=== PATIENT | female | born 1950 | race Caucasian/White ===

== ENCOUNTER 2022-12-25 16:39 | Inpatient (IN) | payer MEDICARE, OTHER ==
--- NOTE | 2022-12-25 18:07 | ED ---
Lower Extremity Injury HPI - General Chief Complaint: Extremity Injury, Lower Stated Complaint: Hip fracture Time Seen by Provider: 12/25/22 17:00 Source: patient, EMS, RN notes reviewed Mode of arrival: EMS Limitations: no limitations - History of Present Illness Initial Comments: 72-year-old female history dementia apparently fell during a transfer at her nursing facility. She was taken to [facility] where she was evaluated and diagnosed with a left hip IT fracture. She was transferred here for higher level of care. Patient herself is a poor historian. Information gathered from the transfer forms reports of other injury. Patient is able to state that she does have pain in her left hip MD Complaint: hip injury - Related Data Home Medications Medication Instructions Recorded Confirmed Acetaminophen [Tylenol] 650 mg PO Q6H PRN 12/25/22 12/25/22 Atorvastatin [Lipitor] 10 mg PO HS 12/25/22 12/25/22 Donepezil [Aricept] 10 mg PO HS 12/25/22 12/25/22 Dulaglutide [Trulicity] 1.5 mg SQ FR 12/25/22 12/25/22 Fexofenadine HCl 60 mg PO DAILY 12/25/22 12/25/22 Fluticasone Nasal [place] [Flonase 1 spray EA NOSTRIL DAILY 12/25/22 12/25/22 Nasal [place]] HYDROcodone/APAP 7.5-325MG [[place] 1 tab PO TID@0900,1300,2100 12/25/22 12/25/22 7.5-325] Insulin Glargine,Hum.rec.anlog 30 units SQ BID 12/25/22 12/25/22 [[place] Solostvarsha] Insulin Lispro [humaLOG Kwikpen] 6 unit SQ DAILY@1600 12/25/22 12/25/22 Magnesium Hydroxide [Milk of 400 mg PO DAILY PRN 12/25/22 12/25/22 Magnesia] Metoprolol Tartrate [Lopressor] 25 mg PO BID 12/25/22 12/25/22 Rivaroxaban [Xarelto] 20 mg PO HS 12/25/22 12/25/22 Sennosides/Docusate Sodium [Senna 1 tab PO BID 12/25/22 12/25/22 Plus 8.6-50 mg Tablet] Sertraline [Zoloft] 50 mg PO DAILY 12/25/22 12/25/22 guaiFENesin SYRUP 100MG/5ML 200 mg PO Q4H PRN 12/25/22 12/25/22 [Robitussin] Allergies Allergy/AdvReac Type Severity Reaction Status Date / Time No Known Allergies Allergy Unverified 12/25/22 17:44 Review of Systems ROS Statement: Those systems with pertinent positive or pertinent negative responses have been documented in the HPI. ROS Other: All systems not noted in ROS Statement are negative. Past Medical History Past Medical History: Unable to Obtain Past Surgical History: Unable to Obtain General Exam - General Exam Comments Initial Comments: This is a well-developed well-nourished awake alert pleasant female Limitations: no limitations General appearance: alert, in no apparent distress Head exam: Present: atraumatic, normocephalic, normal inspection Eye exam: Present: normal appearance, PERRL, EOMI. Absent: scleral icterus, conjunctival injection, periorbital swelling ENT exam: Present: normal exam, mucous membranes moist Neck exam: Present: normal inspection, full ROM. Absent: tenderness, meningismus, lymphadenopathy Respiratory exam: Present: normal lung sounds bilaterally. Absent: respiratory distress, wheezes, rales, rhonchi, stridor Cardiovascular Exam: Present: regular rate, normal rhythm, normal heart sounds. Absent: systolic murmur, diastolic murmur, rubs, gallop, clicks GI/Abdominal exam: Present: soft, normal bowel sounds. Absent: distended, tenderness, guarding, rebound, rigid Rectal exam: Present: deferred Extremities exam: Present: normal inspection, tenderness, normal capillary refill. Absent: full ROM (Tenderness palpation over left hip no definitive shortening or rotation at this time.), pedal edema, joint swelling, calf tendern ess Back exam: Present: normal inspection Neurological exam: Present: alert, oriented X3, CN II-XII intact Psychiatric exam: Present: normal affect, normal mood Skin exam: Present: warm, dry, intact, normal color. Absent: rash Course Vital Signs 12/25/22 12/25/22 16:52 18:43 Pulse Rate 74 75 Respiratory 15 15 Rate Blood Pressure 123/60 122/60 O2 Sat by Pulse 99 100 Oximetry Medical Decision Making - Medical Decision Making I did the entire chart sent from the sending facility including x-rays are is evidence of an IT fracture left hip. I did discuss the case with Dr. Honeycutt [facility] to the patient is seen before admitted with medical consultation for surgery.Was pt. sent in by a medical professional or institution (SCOTT Marion, AUTO GARAGE ATTENDANT, urgent care, hospital, or half-way...) When possible be specific @ -Yes Did you speak to anyone other than the patient for history (EMS, parent, family, police, friend...)? What history was obtained from this source @ -Paramedics Did you review nursing and triage notes (agree or disagree)? Why? @ -I reviewed and agree with nursing and triage notes Were old charts reviewed (outside hosp., previous admission, EMS record, old EKG, old radiological studies, urgent care reports/EKG's, half-way records)? Report findings @ -Sending facility old charts were reviewed Differential Diagnosis (chest pain, altered mental status, abdominal pain women, abdominal pain men, vaginal bleeding, weakness, fever, dyspnea, syncope, headache, dizziness, GI bleed, back pain, seizure, CVA, palpatations, mental health, musculoskeletal)? @ -Hip fracture EKG interpreted by me (3pts min.). @ -Not done X-rays interpreted by me (1pt min.). @ -X-rays from the sending facility indicative of left hip IT fracture CT interpreted by me (1pt min.). @ -None done U/S interpreted by me (1pt. min.). @ -None done What testing was considered but not performed or refused? (CT, X-rays, U/S, labs)? Why? @ -None What meds were considered but not given or refused? Why? @ -None Did you discuss the management of the patient with other professionals (professionals i.e. SCOTT Marion, AUTO GARAGE ATTENDANT, lab, RT, psych nurse, social services assistant, mental health worker, teacher, airframe technical officer, caser shoe parts)? Give summary @ -Dr. Honeycutt Was smoking cessation discussed for >3mins.? @ -No Was critical care preformed (if so, how long)? @ -No Were there social determinants of health that impacted care today? How? (Homelessness, low income, unemployed, alcoholism, drug addiction, transportation, low edu. Level, literacy, decrease access to med. care, [place] [facility], rehab)? @ -No Was there de-escalation of care discussed even if they declined (Discuss DNR or withdrawal of care, Hospice)? DNR status @ -No What co-morbidities impacted this encounter? (DM, HTN, Smoking, COPD, CAD, Cancer, CVA, ARF, Chemo, Hep., AIDS, mental health diagnosis, sleep apnea, morbid obesity)? @ -A. fib depression dementia hypertension Was patient admitted / discharged? Hospital course, mention meds given and route, prescriptions, significant lab abnormalities, going to OR and other pertinent info. @ -hospital course Undiagnosed new problem with uncertain prognosis? @ -No Drug Therapy requiring intensive monitoring for toxicity (Heparin, Nitro, Insulin, Cardizem)? @ -No Were any procedures done? @ -No Diagnosis/symptom? @ -Acute left hip fracture Acute, or Chronic, or Acute on Chronic? @ -Acute Uncomplicated (without systemic symptoms) or Complicated (systemic symptoms)? @ -default Side effects of treatment? @ -No Exacerbation, Progression, or Severe Exacerbation? @ -No Poses a threat to life or bodily function? How? (Chest pain, [place], [place], pneumonia, PE, COPD, DKA, ARF, appy, cholecystitis, CVA, Diverticulitis, Homicidal, Suicidal, threat to staff... and all critical care pts) @ -No - Lab Data Result diagrams: 12/25/22 18:43 12/25/22 18:43 Lab Results 12/25/22 12/25/22 12/25/22 Range/Units 18:43 18:43 18:43 WBC 15.4 H (3.8-10.6) k/uL RBC 4.17 (3.80-5.40) m/uL Hgb 13.6 (11.4-16.0) gm/dL Hct 39.0 (34.0-46.0) % MCV 93.5 (80.0-100.0) fL MCH 32.7 (25.0-35.0) pg MCHC 34.9 (31.0-37.0) g/dL RDW 12.6 (11.5-15.5) % Plt Count 230 (150-450) k/uL MPV 8.1 Neutrophils % 84 % Lymphocytes % 10 % Monocytes % 5 % Eosinophils % 1 % Basophils % 0 % Neutrophils # 12.9 H (1.3-7.7) k/uL Lymphocytes # 1.5 (1.0-4.8) k/uL Monocytes # 0.8 (0-1.0) k/uL Eosinophils # 0.1 (0-0.7) k/uL Basophils # 0.0 (0-0.2) k/uL PT 10.6 (9.0-12.0) sec INR 1.0 (<1.2) APTT 23.6 (22.0-30.0) sec Sodium (137-145) mmol/L Potassium (3.5-5.1) mmol/L Chloride (98-107) mmol/L Carbon Dioxide (22-30) mmol/L Anion Gap mmol/L BUN (7-17) mg/dL Creatinine (0.52-1.04) mg/dL Est GFR (CKD-EPI)AfAm (>60 ml/min/1.73 sqM) Est GFR (CKD-EPI)NonAf (>60 ml/min/1.73 sqM) Glucose (74-99) mg/dL Calcium (8.4-10.2) mg/dL Total Bilirubin (0.2-1.3) mg/dL AST (14-36) U/L ALT (4-34) U/L Alkaline Phosphatase (38-126) U/L Total Protein (6.3-8.2) g/dL Albumin (3.5-5.0) g/dL Urine Color Yellow Urine Appearance Clear (Clear) Urine pH 7.0 (5.0-8.0) Ur Specific [place] 1.015 (1.001-1.035) Urine Protein Negative (Negative) Urine Glucose (UA) Negative (Negative) Urine Ketones Negative (Negative) Urine Blood Negative (Negative) Urine Nitrite Negative (Negative) Urine Bilirubin Negative (Negative) Urine Urobilinogen 2.0 (<2.0) mg/dL Ur Leukocyte Esterase Negative (Negative) 12/25/22 Range/Units 18:43 WBC (3.8-10.6) k/uL RBC (3.80-5.40) m/uL Hgb (11.4-16.0) gm/dL Hct (34.0-46.0) % MCV (80.0-100.0) fL MCH (25.0-35.0) pg MCHC (31.0-37.0) g/dL RDW (11.5-15.5) % Plt Count (150-450) k/uL MPV Neutrophils % % Lymphocytes % % Monocytes % % Eosinophils % % Basophils % % Neutrophils # (1.3-7.7) k/uL Lymphocytes # (1.0-4.8) k/uL Monocytes # (0-1.0) k/uL Eosinophils # (0-0.7) k/uL Basophils # (0-0.2) k/uL PT (9.0-12.0) sec INR (<1.2) APTT (22.0-30.0) sec Sodium 136 L (137-145) mmol/L Potassium 3.9 (3.5-5.1) mmol/L Chloride 101 (98-107) mmol/L Carbon Dioxide 29 (22-30) mmol/L Anion Gap 6 mmol/L BUN 16 (7-17) mg/dL Creatinine 0.66 (0.52-1.04) mg/dL Est GFR (CKD-EPI)AfAm >90 (>60 ml/min/1.73 sqM) Est GFR (CKD-EPI)NonAf 88 (>60 ml/min/1.73 sqM) Glucose 67 L (74-99) mg/dL Calcium 8.9 (8.4-10.2) mg/dL Total Bilirubin 0.6 (0.2-1.3) mg/dL AST 32 (14-36) U/L ALT 42 H (4-34) U/L Alkaline Phosphatase 108 (38-126) U/L Total Protein 6.1 L (6.3-8.2) g/dL Albumin 3.7 (3.5-5.0) g/dL Urine Color Urine Appearance (Clear) Urine pH (5.0-8.0) Ur Specific [place] (1.001-1.035) Urine Protein (Negative) Urine Glucose (UA) (Negative) Urine Ketones (Negative) Urine Blood (Negative) Urine Nitrite (Negative) Urine Bilirubin (Negative) Urine Urobilinogen (<2.0) mg/dL Ur Leukocyte Esterase (Negative) Disposition Clinical Impression: Fracture of hip Disposition: ADMITTED IP TO THIS HOSP Condition: Stable Referrals: Jack Moore MD [Primary Care Provider] - 1-2 days Decision Date: 12/25/22 Decision Time: 19:37
[2022-12-25 18:54] LABS: Appearance,Urine Clear (Clear); Basophils % (A) 0 %; Bilirubin,Urine Negative (Negative); Blood,Urine Negative (Negative); Color,Urine Yellow; Eosinophils # (A) 0.1 k/uL (0-0.7); Eosinophils % (A) 1 %; Glucose,Urine (UA) Negative (Negative); HGB 13.6 gm/dL (11.4-16.0); Ketones,Urine Negative (Negative); Leukocyte Esterase,Urine Negative (Negative); Lymphocytes # (A) 1.5 k/uL (1.0-4.8); Lymphocytes % (A) 10 %; MCH 32.7 pg (25.0-35.0); MCHC 34.9 g/dL (31.0-37.0); MCV 93.5 fL (80.0-100.0); Mean Platelet Volume 8.1; Monocytes # (A) 0.8 k/uL (0-1.0); Monocytes % (A) 5 %; Neutrophils # (A) 12.9 k/uL (1.3-7.7); Neutrophils % (A) 84 %; Nitrite,Urine Negative (Negative); Platelet Count 230 k/uL (150-450); Protein,Urine Negative (Negative); RBC 4.17 m/uL (3.80-5.40); RDW 12.6 % (11.5-15.5); Specific Gravity,Urine 1.015 (1.001-1.035); WBC 15.4 k/uL (3.8-10.6)
[2022-12-25 19:04] LABS: ALT 42 U/L (4-34); AST 32 U/L (14-36); African American GFR (CKD) >90 (>60 ml/min/1.73 sqM); Albumin 3.7 g/dL (3.5-5.0); Alkaline Phosphatase 108 U/L (38-126); Anion Gap 6 mmol/L; Blood Urea Nitrogen 16 mg/dL (7-17); Calcium 8.9 mg/dL (8.4-10.2); Carbon Dioxide 29 mmol/L (22-30); Chloride 101 mmol/L (98-107); Glucose 67 mg/dL (74-99); Non-African American GFR(CKD) 88 (>60 ml/min/1.73 sqM); Potassium 3.9 mmol/L (3.5-5.1); Sodium 136 mmol/L (137-145); Total Bilirubin 0.6 mg/dL (0.2-1.3); Total Protein 6.1 g/dL (6.3-8.2)
[2022-12-25 19:20] LABS: Partial Thromboplastin Time 23.6 sec (22.0-30.0); Prothrombin Time 10.6 sec (9.0-12.0)
[2022-12-25] MEDS ORDERED: ONDANSETRON 4 MG/2 ML VIAL IVP PRN (19:38)
[2022-12-25] MEDS ORDERED: NALOXONE 0.4 MG/ML 1 ML VIAL IV PRN (19:38)
--- NOTE | 2022-12-25 20:39 | XR ---
EXAMINATION: XR chest 1V portable DATE AND TIME: 12/25/2022 6:52 PM CLINICAL INDICATION: Left hip fracture TECHNIQUE: AP upright portable COMPARISON: None FINDINGS: The lungs are clear. The pleural spaces are negative. The cardiac silhouette is not enlarged. The remainder of the mediastinal silhouette is unremarkable. The skeletal structures and soft tissues are negative for acute findings. IMPRESSION: No acute radiographic process.
[2022-12-25 20:58] LABS: Glucose,Whole Blood 70 mg/dL (70-110)
[2022-12-25] MEDS: HYDROmorphone 0.5 MG/0.5 ML SYRINGE IVP PRN (22:09)
[2022-12-25] MEDS: SODIUM CHLORIDE 0.9% 1,000 ML IV SCH (22:09)
[2022-12-26] MEDS: SODIUM CHLORIDE 0.9% 1,000 ML IV SCH ×2 (04:14→13:10)
[2022-12-26] MEDS: HYDROmorphone 0.5 MG/0.5 ML SYRINGE IVP PRN ×3 (05:33→16:05)
[2022-12-26 07:34] LABS: Glucose,Whole Blood 66 mg/dL (70-110)
[2022-12-26 08:14] LABS: Glucose,Whole Blood 58 mg/dL (70-110)
[2022-12-26 08:37] LABS: Glucose,Whole Blood 102 mg/dL (70-110)
--- NOTE | 2022-12-26 09:10 | P.HPOR ---
History of Present Illness H&P Date: 12/26/22 Chief Complaint: Left hip injury The patient is a 72 y/o female with a past medical history including diabetes, A. fib, and dementia, who presented to the ER at [facility] after a transfer from an outside facility. She states she fell yesterday, 12/25/2022 and had immediate left hip pain and inability to ambulate. She does use a walker at home and she lives with her . She was found to have a intratrochanteric fracture of the left hip and was transferred here for surgical intervention. The patient was admitted to orthopedics with internal medicine on consult. Review of Systems Constitutional: Denies chills, Denies fatigue, Denies fever Cardiovascular: Denies chest pain, Denies shortness of breath Respiratory: Denies cough Gastrointestinal: Denies diarrhea, Denies nausea, Denies vomiting Musculoskeletal: left: hip pain, hip stiffness, hip swelling Past Medical History Past Medical History: Atrial Fibrillation, Dementia History of Any Multi-Drug Resistant Organisms: None Reported Past Surgical History: Unable to Obtain Past Anesthesia/Blood Transfusion Reactions: No Reported Reaction Past Psychological History: No Psychological Hx Reported Smoking Status: Never smoker Past Alcohol Use History: None Reported Past Drug Use History: None Reported Medications and Allergies Home Medications Medication Instructions Recorded Confirmed Type Acetaminophen [Tylenol] 650 mg PO Q6H PRN 12/25/22 12/25/22 History Atorvastatin [Lipitor] 10 mg PO HS 12/25/22 12/25/22 History Donepezil [Aricept] 10 mg PO HS 12/25/22 12/25/22 History Dulaglutide [Trulicity] 1.5 mg SQ FR 12/25/22 12/25/22 History Fexofenadine HCl 60 mg PO DAILY 12/25/22 12/25/22 History Fluticasone Nasal [place] [Flonase 1 spray EA NOSTRIL DAILY 12/25/22 12/25/22 History Nasal [place]] HYDROcodone/APAP 7.5-325MG [[place] 1 tab PO TID@0900,1300,2100 12/25/22 12/25/22 History 7.5-325] Insulin Glargine,Hum.rec.anlog 30 units SQ BID 12/25/22 12/25/22 History [Tojyothi Roberto] Insulin Lispro [humaLOG Kwikpen] 6 unit SQ DAILY@1600 12/25/22 12/25/22 History Magnesium Hydroxide [Milk of 400 mg PO DAILY PRN 12/25/22 12/25/22 History Magnesia] Metoprolol Tartrate [Lopressor] 25 mg PO BID 12/25/22 12/25/22 History Rivaroxaban [Xarelto] 20 mg PO HS 12/25/22 12/25/22 History Sennosides/Docusate Sodium [[place] 1 tab PO BID 12/25/22 12/25/22 History Plus 8.6-50 mg Tablet] Sertraline [Zoloft] 50 mg PO DAILY 12/25/22 12/25/22 History guaiFENesin SYRUP 100MG/5ML 200 mg PO Q4H PRN 12/25/22 12/25/22 History [Robitussin] Allergies Allergy/AdvReac Type Severity Reaction Status Date / Time No Known Allergies Allergy Unverified 12/25/22 17:44 Physical Examination The patient is a 72 year-old female in no acute distress. She is alert and oriented 2. The patient's head is normocephalic, atraumatic. No pain upon palpation to the cervical spine, no step-offs noted. Exam of the bilateral upper extremities reveal no obvious deformities or wounds. Exam of the right lower extremity reveals no deformity or wounds. No pain upon range of motion of the right leg. Exam of the left lower extremity reveals severe guarding to the left hip. There is a small abrasion on the her left anterior leg from the fall. There is pain to palpation to the lateral hip. There is pain to external and internal rotation of the left hip. Calf is soft and nontender. She is able to wiggle his toes. Circulatory status is intact. Results Outside x-rays of the pelvis at [facility] reveals a intertrochantric fracture of the left hip. - Labs Labs: Abnormal Lab Results - Last 24 Hours (Table) 12/25/22 12/25/22 12/26/22 Range/Units 18:43 18:43 07:32 WBC 15.4 H (3.8-10.6) k/uL Neutrophils # 12.9 H (1.3-7.7) k/uL Sodium 136 L (137-145) mmol/L Glucose 67 L (74-99) mg/dL POC Glucose (mg/dL) 66 L (70-110) mg/dL ALT 42 H (4-34) U/L Total Protein 6.1 L (6.3-8.2) g/dL 12/26/22 Range/Units 08:13 WBC (3.8-10.6) k/uL Neutrophils # (1.3-7.7) k/uL Sodium (137-145) mmol/L Glucose (74-99) mg/dL POC Glucose (mg/dL) 58 L (70-110) mg/dL ALT (4-34) U/L Total Protein (6.3-8.2) g/dL H & H 12/25/22 Range/Units 18:43 Hgb 13.6 (11.4-16.0) gm/dL Hct 39.0 (34.0-46.0) % Coagulation 12/25/22 Range/Units 18:43 INR 1.0 (<1.2) Result Diagrams: 12/25/22 18:43 12/25/22 18:43 Assessment and Plan (1) Closed left hip fracture Current Visit: Yes Status: Acute Code(s): S72.002A - FRACTURE OF UNSP PART OF NECK OF LEFT FEMUR, INIT SNOMED Code(s): 932021170 (2) Dementia Current Visit: Yes Status: Acute Code(s): F03.90 - UNSP DEMENTIA, UNSP SEVERITY, WITHOUT BEH/PSYCH/MOOD/ANX SNOMED Code(s): 33442159 (3) Atrial fibrillation Current Visit: Yes Status: Acute Code(s): I48.91 - UNSPECIFIED ATRIAL FIBRILLATION SNOMED Code(s): 46933092 (4) Diabetes mellitus Current Visit: Yes Status: Acute Code(s): E11.9 - TYPE 2 DIABETES MELLITUS WITHOUT COMPLICATIONS SNOMED Code(s): 68832129 Plan: The clinical and x-ray findings were discussed with the patient. No family was at the bedside this morning. The case was discussed at length with Dr. Honeycutt. This type of fracture requires surgical intervention in the form of an ORIF with insertion of a cephlomedullary nail. We will await medical clearance for surgery and anticipate surgical intervention tomorrow morning at 8 AM. She'll be NPO at midnight. Continue bed rest and pain medication as needed. We will continue to follow patient closely and make further recommendations as needed.
[2022-12-26] MEDS ORDERED: bisacodyL 10 MG SUPP RECTAL STA (10:13)
[2022-12-26] MEDS: SENNOSIDES 8.6 MG TAB PO SCH ×2 (11:13→21:19)
[2022-12-26] MEDS ORDERED: ACETAMINOPHEN TAB 325 MG TAB PO PRN (11:37)
[2022-12-26] MEDS ORDERED: DEXTROSE 50% SYRINGE 50 ML IVP PRN ×2 (11:37)
[2022-12-26] MEDS ORDERED: MAGNESIUM HYDROXIDE 2,400 MG/30 ML CUP PO PRN (11:37)
[2022-12-26] MEDS ORDERED: guaiFENesin SYRUP 100MG/5ML 200 MG/10 ML CUP PO PRN (11:37)
[2022-12-26] MEDS ORDERED: NON FORMULARY DRUG (Dulaglutide [Trulicity] 1.5 MG/0.5 ML Each) SQ SCH (11:45)
[2022-12-26 11:54] LABS: Glucose,Whole Blood 178 mg/dL (70-110)
[2022-12-26] MEDS ORDERED: DEXTROSE 5%-0.9% NACL 1,000 ML with POTASSIUM CHLORIDE 20 MEQ IV SCH ×2 (12:00)
--- NOTE | 2022-12-26 12:54 | P.CRDCN ---
History of Present Illness Consult date: 12/26/22 Consult reason: atrial fibrillation History of present illness: History of present illness: This is a 72 year old female patient with past medical history of dementia, diabetes mellitus type 2, atrial fibrillation, hypertension, hyperlipidemia. Patient apparently had a transfer and fell at her [facility] and was sent to [facility] found to have a left hip IT fracture and was subsequently transferred to [facility] for surgical intervention. Patient is scheduled tomorrow for left hip open reduction internal fixation and a cephalo- medullary nail. Patient is pleasantly confused but able to deny having any chest pain, shortness of breath, lightheadedness or dizziness. She is having pain in the left hip area. EKG to be obtained Chest x-ray: No acute process Home cardiac medications: Atorvastatin 10 mg at bedtime, Lopressor 25 mg twice daily, Xarelto 20 g at bedtime Review Of Systems: At the time of my evaluation: Constitutional: No fever, no chills. No weakness, fatigue or lethargy. EENT: No headache. No dizziness. Lungs: No shortness of breath, cough, no sputum production. No wheezing. Cardiovascular: No chest pain, no lower extremity edema. No palpitations. No lightheadedness or dizziness. No syncopal episodes. Abdominal: No abdominal pain. No nausea, vomiting. No diarrhea. No constipation. No bloody or tarry stools. Genitourinary: No dysuria.. No urinary retention. Musculoskeletal: No myalgias. No muscle weakness, no frequent falls. Reports left hip pain Integumentary: No wounds. Neurologic: No aphasia. No facial droop. No change in mentation. No head injury. No headache. Physical examination: Gen: This is a 72-year-old female. She is resting in bed and appears to be comfortable and in no acute distress. VS: reviewed HEENT: Head is atraumatic, normocephalic. Pupils equal, round. Sclerae is anicteric. NECK: Supple. No JVD. . LUNGS: Clear to auscultation. No wheezes or rhonchi. No intercostal retractions. HEART: Irregular rate and rhythm. ABDOMEN: Soft No tenderness. EXTREMITIES: No pedal edema. Left lower extremity with external rotation NEUROLOGICAL: Patient is awake, alert and oriented to person. Assessment: Left IT fracture Chronic atrial fibrillation Hypertension Hyperlipidemia Dementia Diabetes mellitus Plan: Resume patient's home cardiac medications except for Xarelto Obtain EKG Obtain 2-D echocardiogram and Doppler study to assess cardiac structure and function Further recommendations to follow based upon clinical course Thank you kindly for this consultation. Nurse practitioner note has been reviewed, I agree with documented findings and plan of care. Patient was seen and examined. Past Medical History Past Medical History: Atrial Fibrillation, Dementia History of Any Multi-Drug Resistant Organisms: None Reported Past Surgical History: Unable to Obtain Past Anesthesia/Blood Transfusion Reactions: No Reported Reaction Past Psychological History: No Psychological Hx Reported Smoking Status: Never smoker Past Alcohol Use History: None Reported Past Drug Use History: None Reported Medications and Allergies Home Medications Medication Instructions Recorded Confirmed Type Acetaminophen [Tylenol] 650 mg PO Q6H PRN 12/25/22 12/25/22 History Atorvastatin [Lipitor] 10 mg PO HS 12/25/22 12/25/22 History Donepezil [Aricept] 10 mg PO HS 12/25/22 12/25/22 History Dulaglutide [Trulicity] 1.5 mg SQ FR 12/25/22 12/25/22 History Fexofenadine HCl 60 mg PO DAILY 12/25/22 12/25/22 History Fluticasone Nasal [place] [Flonase 1 spray EA NOSTRIL DAILY 12/25/22 12/25/22 History Nasal Ed[place]] HYDROcodone/APAP 7.5-325MG [Aurora 1 tab PO TID@0900,1300,2100 12/25/22 12/25/22 History 7.5-325] Insulin Glargine,Hum.rec.anlog 30 units SQ BID 12/25/22 12/25/22 History [Toujeo Solostar] Insulin Lispro [humaLOG Kwikpen] 6 unit SQ DAILY@1600 12/25/22 12/25/22 History Magnesium Hydroxide [Milk of 400 mg PO DAILY PRN 12/25/22 12/25/22 History Magnesia] Metoprolol Tartrate [Lopressor] 25 mg PO BID 12/25/22 12/25/22 History Rivaroxaban [Xarelto] 20 mg PO HS 12/25/22 12/25/22 History Sennosides/Docusate Sodium [Senna 1 tab PO BID 12/25/22 12/25/22 History Plus 8.6-50 mg Tablet] Sertraline [Zoloft] 50 mg PO DAILY 12/25/22 12/25/22 History guaiFENesin SYRUP 100MG/5ML 200 mg PO Q4H PRN 12/25/22 12/25/22 History [Robitussin] Allergies Allergy/AdvReac Type Severity Reaction Status Date / Time No Known Allergies Allergy Unverified 12/25/22 17:44 Physical Exam Vitals: Vital Signs Temp Pulse Pulse Resp BP BP Pulse Ox 12/26/22 07:22 98.5 F 74 14 119/65 95 12/26/22 02:00 98.4 F 79 16 133/64 94 L 12/25/22 23:00 16 12/25/22 22:11 98.3 F 71 16 134/72 96 12/25/22 22:00 97.9 F 74 17 156/69 97 12/25/22 21:15 78 16 135/65 100 12/25/22 18:43 75 15 122/60 100 12/25/22 16:52 74 15 123/60 99 Intake and Output 12/25/22 12/26/22 12/26/22 22:59 06:59 14:59 Output Total 450 300 Balance -450 -300 Output: Urine 450 300 Other: Voiding Method Indwelling Catheter Indwelling Catheter Weight 72.575 kg Results 12/25/22 18:43 12/25/22 18:43 Cardiac Enzymes 12/25/22 Range/Units 18:43 AST 32 (14-36) U/L Coagulation 12/25/22 Range/Units 18:43 PT 10.6 (9.0-12.0) sec APTT 23.6 (22.0-30.0) sec CBC 12/25/22 Range/Units 18:43 WBC 15.4 H (3.8-10.6) k/uL RBC 4.17 (3.80-5.40) m/uL Hgb 13.6 (11.4-16.0) gm/dL Hct 39.0 (34.0-46.0) % Plt Count 230 (150-450) k/uL Comprehensive Metabolic Panel 12/25/22 Range/Units 18:43 Sodium 136 L (137-145) mmol/L Potassium 3.9 (3.5-5.1) mmol/L Chloride 101 (98-107) mmol/L Carbon Dioxide 29 (22-30) mmol/L BUN 16 (7-17) mg/dL Creatinine 0.66 (0.52-1.04) mg/dL Glucose 67 L (74-99) mg/dL Calcium 8.9 (8.4-10.2) mg/dL AST 32 (14-36) U/L ALT 42 H (4-34) U/L Alkaline Phosphatase 108 (38-126) U/L Total Protein 6.1 L (6.3-8.2) g/dL Albumin 3.7 (3.5-5.0) g/dL Current Medications Generic Name Dose Route Start Last Admin Trade Name Freq PRN Reason Stop Dose Admin Acetaminophen 650 mg 12/26/22 11:37 Acetaminophen Tab 325 Mg Tab PO Q6H PRN Mild Pain Hydrocodone Bitart/Acetaminophen 1 each 12/26/22 13:00 Hydrocodone/Apap 7.5-325mg 1 Each Tab PO TID@0900,1300,2100 [facility] Atorvastatin Calcium 10 mg 12/26/22 21:00 Atorvastatin 10 Mg Tab PO HS [facility] Dextrose/Water 25 ml 12/26/22 11:37 Dextrose 50% Syringe 50 Ml IVP PER PROTOCOL PRN Hypoglycemia Protocol Dextrose/Water 50 ml 12/26/22 11:37 Dextrose 50% Syringe 50 Ml IVP PER PROTOCOL PRN Hypoglycemia Protocol Donepezil HCl 10 mg 12/26/22 21:00 Donepezil 10 Mg Tab PO HS [facility] Fluticasone Propionate 1 spray 12/27/22 09:00 Fluticasone 50mcg/Edmond Nasal 16gm EA NOSTRIL DAILY [facility] Guaifenesin 200 mg 12/26/22 11:37 Guaifenesin Syrup 100mg/5ml 200 Mg/10 Ml Cup PO Q4H PRN Cough Hydromorphone HCl 0.5 mg 12/25/22 19:38 12/26/22 10:23 Hydromorphone 0.5 Mg/0.5 Ml Syringe IVP 0.5 mg Q3HR PRN Administration Moderate Pain (Scale 4 to 6) Potassium Chloride 20 meq/ 1,010 mls @ 75 mls/hr 12/26/22 12:00 Dextrose/Sodium Chloride IV .[id number] [facility] Loratadine 10 mg 12/27/22 09:00 Loratadine 10 Mg Tab PO DAILY [facility] Magnesium Hydroxide 400 mg 12/26/22 11:37 Magnesium Hydroxide 2,400 Mg/30 Ml Cup PO DAILY PRN Constipation Metoprolol Tartrate 25 mg 12/26/22 21:00 Metoprolol Tartrate 25 Mg Tab PO BID [facility] Naloxone HCl 0.2 mg 12/25/22 19:38 Naloxone 0.4 Mg/Ml 1 Ml Vial IV Q2M PRN Opioid Reversal Ondansetron HCl 4 mg 12/25/22 19:38 Ondansetron 4 Mg/2 Ml Vial IVP Q8HR PRN Nausea And Vomiting Senna 8.6 mg 12/26/22 10:30 12/26/22 11:13 Sennosides 8.6 Mg Tab PO 8.6 mg BID KHURRAM Administration Sertraline HCl 50 mg 12/27/22 09:00 Sertraline 50 Mg Tab PO DAILY [facility]UR[facility] Intake and Output 12/25/22 12/26/22 12/26/22 22:59 06:59 14:59 Output Total 450 300 Balance -450 -300 Output: Urine 450 300 Other: Voiding Method Indwelling Catheter Indwelling Catheter Weight 72.575 kg 12/25/22 18:43 12/25/22 18:43
[2022-12-26] MEDS: HYDROcodone/APAP 7.5-325MG 1 EACH TAB PO SCH ×2 (13:09→21:19)
--- NOTE | 2022-12-26 14:47 | CONS ---
CONSULTATION REASON FOR CONSULTATION: Advice regarding atrial fibrillation and other medical issues requested by Orthopedic Surgery. HISTORY OF PRESENT ILLNESS: This is a 72-year-old woman with a past medical history of atrial fibrillation and dementia, who was admitted with left hip fracture. There is no history of any shortness of breath, palpitation, or chest pain at this time. There is no history of syncope. The patient is comfortable lying in the bed. PAST MEDICAL HISTORY: Reviewed includes atrial fibrillation and dementia. Rest of the history and rest of the chart are also reviewed. HOME MEDICATIONS: Reviewed, magnesium. Doses and rest of the medications are reviewed. ALLERGIES: None. FAMILY HISTORY: Could not be taken because of dementia. SOCIAL HISTORY: Could not be taken because of dementia. REVIEW OF SYSTEMS: Could not be taken because of dementia. PHYSICAL EXAMINATION: VITAL SIGNS: Pulse is 79, blood pressure 130/62, respirations 16. HEENT: Conjunctivae are normal. NECK: No jugular venous distention. CARDIOVASCULAR: S1 and S2 muffled. RESPIRATORY: Clear to auscultation. ABDOMEN: Soft and nontender. LEGS: Status post left hip fracture. NERVOUS SYSTEM: Nonfocal. SKIN: No ulcers or rashes. JOINTS: No active deforming arthropathy. LABORATORY DATA: Reviewed. ASSESSMENT: 1. Status post left hip fracture. 2. Dementia. 3. Atrial fibrillation history. 4. Increased WBC. 5. Mild hypoglycemia. RECOMMENDATIONS AND DISCUSSION: This is a 72-year-old woman presented with multiple medical issues. At this time, I recommend to continue the home medications, monitor blood sugars closely, D5 drip. Repeat labs. DVT prophylaxis. I will also recommend a baseline EKG. Otherwise, the patient is stable and cleared for surgery. MMODL / IJN: [id number] /
[2022-12-26] MEDS: D5-0.9% NACL WITH KCL 20 MEQ/L 1,000 ML IV SCH (16:03)
[2022-12-26 17:14] LABS: Glucose,Whole Blood 251 mg/dL (70-110)
--- NOTE | 2022-12-26 17:48 | CA ---
Transthoracic Echo Report Name: Carmen Colin Age: 72 Gender: F : 1950 Exam Date: 12/26/2022 14:09 Exam Location: [facility] Ht (in): 62 Wt (lb): 160 Ordering Physician: Radha Garcia Attending/Referring Phys: [id number], Radha Rehab Trainer Philipp Kwon Procedure CPT: Indications: LVF, preop Cardiac Hx: Technical Quality: Technically difficult study Contrast 1: Total Dose (mL): Contrast 2: Total Dose (mL): MEASUREMENTS (Male / Female) Normal Values FINDINGS Left Ventricle Normal LV size and wall thickness. Left ventricular ejection fraction is estimated at 55-60 %. Right Ventricle Normal right ventricular size. Right Atrium Normal right atrial size. Left Atrium Normal left atrial size. Mitral Valve Structurally normal mitral valve. Aortic Valve Aortic valve not well visualized. Mild AI. Tricuspid Valve Structurally normal tricuspid valve. Trace TR. Pulmonic Valve Pulmonic valve not well visualized. Pericardium Normal pericardium. Aorta Aortic root and proximal ascending aorta not well visualized. CONCLUSIONS Technically limited parasternal views. Normal LV function Mild aortic regurgitation Previewed by: Aleksander Lopez MD Dr. Suresh Tumma MD (Electronically Signed) Final Date: 26 December 2022 17:47
[2022-12-26 20:22] LABS: Glucose,Whole Blood 273 mg/dL (70-110)
[2022-12-26] MEDS: ATORVASTATIN 10 MG TAB PO SCH (21:19)
[2022-12-26] MEDS: DONEPEZIL 10 MG TAB PO SCH (21:19)
[2022-12-26] MEDS: METOPROLOL TARTRATE 25 MG TAB PO SCH (21:19)
[2022-12-27] MEDS: D5-0.9% NACL WITH KCL 20 MEQ/L 1,000 ML IV SCH ×2 (04:03→15:22)
[2022-12-27] MEDS ORDERED: MIDAZOLAM 2 MG/2 ML VIAL ONE (08:03)
[2022-12-27] MEDS ORDERED: PHENYLEPHRINE 10 MG/ML VIAL ONE (08:03)
[2022-12-27] MEDS ORDERED: ONDANSETRON 4 MG/2 ML VIAL ONE (08:03)
[2022-12-27] MEDS ORDERED: fentaNYL (PF) 50 MCG/ML 2 ML AMP ONE (08:03)
[2022-12-27] MEDS ORDERED: SUCCINYLCHOLINE CHLORIDE 200 MG/10 ML VIAL IV ONE (08:03)
[2022-12-27] MEDS ORDERED: PROPOFOL 10 MG/ML 20 ML VIAL IV ONE (08:03)
[2022-12-27] MEDS ORDERED: LIDOCAINE 2% INJ 20 MG/ML (2 ML VIAL) ONE (08:03)
[2022-12-27 08:05] LABS: Glucose,Whole Blood 254 mg/dL (70-110)
[2022-12-27] MEDS ORDERED: SODIUM CHLORIDE 0.9% 50 ML with ceFAZolin 2,000 MG IV ONE ×2 (08:06)
[2022-12-27] MEDS ORDERED: IV FLUID CONTINUATION 1,000 ML IV ONE (08:06)
[2022-12-27] MEDS: FLUTICASONE 50MCG/SPRAY NASAL 16GM EA NOSTRIL SCH (08:39)
[2022-12-27] MEDS ORDERED: BUPIVACAINE (PF) 0.5% 30 ML VIAL SQ ONE (09:21)
[2022-12-27 09:35] LABS: BUN/Creat Ratio 12.57 Ratio (12.00-20.00); Blood Urea Nitrogen 8.8 mg/dL (9.0-27.0); Calcium 9.1 mg/dL (8.7-10.3); Carbon Dioxide 25.9 mmol/L (21.6-31.8); Chloride 103 mmol/L (96-109); Glucose 280 mg/dL (70-110); Potassium 4.9 mmol/L (3.5-5.5); Sodium 137 mmol/L (135-145)
[2022-12-27 09:48] LABS: Basophils # (A) 0.03 X 10*3/uL (0.00-0.10); Basophils % (A) 0.3 %; Eosinophils # (A) 0.12 X 10*3/uL (0.04-0.35); Eosinophils % (A) 1.4 %; HCT 38.1 % (37.2-46.3); HGB 12.6 d/dL (12.0-15.0); Lymphocytes # (A) 1.18 X 10*3/uL (0.90-5.00); Lymphocytes % (A) 13.4 %; MCH 31.7 pg (27.0-32.0); MCHC 33.1 d/dL (32.0-37.0); MCV 95.7 FL (80.0-97.0); Mean Platelet Volume 11.7 FL (9.5-12.2); Monocytes # (A) 0.64 X 10*3/uL (0.20-1.00); Monocytes % (A) 7.3 %; NRBC Per 100 WBC 0 X 10*3/uL (0.00-0.01); Neutrophils # (A) 6.82 X 10*3/uL (1.80-7.70); Neutrophils % (A) 77.3 %; Platelet Count 202 X 10*3/uL (140-440); RBC 3.98 X 10*6/uL (4.10-5.20); RDW 12.4 % (11.5-14.5); WBC 8.82 X 10*3/uL (4.50-10.00)
[2022-12-27] MEDS ORDERED: HYDROmorphone 0.5 MG/0.5 ML SYRINGE IVP ONE (09:48)
--- NOTE | 2022-12-27 10:18 | FL ---
Intraoperative/procedural fluoroscopic services were provided. Total fluoroscopy time is 54 seconds w ith a total of 3 submitted images to PACS. Please see the operative/procedural note for further detai ls. DAP: 2.3058 mGym2
[2022-12-27] MEDS ORDERED: LACTATED RINGERS 1,000 ML IV ONE (10:43)
--- NOTE | 2022-12-27 10:45 | P.OP ---
Date of Procedure: 12/27/22 Preoperative Diagnosis: Left basicervical femoral neck fracture Postoperative Diagnosis: same Procedure(s) Performed: left hip IM nail Implants: jimmy gamma nail, short, 95mm lag screw, 35mm cortical screw Anesthesia: GETA Surgeon: La Honeycutt Estimated Blood Loss (ml): 20 Pathology: none sent Condition: stable Disposition: PACU Indications for Procedure: Carmen is a 72 female who suffered a ground level fall which resulted in a basicervial femoral neck fracture. We will proceed with a CMN. Operative Findings: minimally displaced basicervical femoral neck fracture Description of Procedure: The patient, operative extremity, and procedure were identified in the pre-op holding area. After informed consent was obtained. The patient was brought back to the OR. The patient was then positioned on the [place] table. Both feet were placed in well padded boots and the well leg was scissored with traction unlocked. All bony prominences were well padded. A reduction was performed with abduction and traction followed by adduction and internal rotation. This was confirmed on fluoroscopy. The operative site was then prepped and draped in normal sterile fashion. A 5cm incision was made posterior and proximal to the greater trochanter. The awl was introduced and used to hold the start point for the guide wire. The position of the guide wire was confirmed on orthogonal views. The awl was s ubstituted for the opening reamer. The ball tip guide wire was then introduced across the fracture and once placement was confirmed, the 12.5mm reamer was threaded over the wire and removed. The short nail was then placed over the wire and seated to the proper depth. The guide wire was removed. The triple cannula was then utilized to place the femoral neck guide pin. An incision was made to seat the triple cannula. Wire placement was checked on orthogonal views. The measuring guide showed that a mm screw would be appropriate for a tip to apex distance of less than 25mm. The reamer was set and utilized. The lag screw was then inserted. The superior locking screw was then tightened and loosened a quarter turn. The triple sleeve was removed and the jig was reset for the locking screw distally. The triple sleeve was inserted through an incision through skin and IT band. The hole was drilled and a mm screw was selected and inserted. Final views showed acceptable reduction and placement of the hardware. Wounds were irrigated and closed with 2.0 vycril and 4.0 monocryl and skin glue. Wounds were dressed with gauze and tegaderm. Patient was aroused by the ane sthesia team and brought back to PACU in stable condition.
[2022-12-27] MEDS ORDERED: droPERidol 5 MG/2 ML VIAL IVP ONE (10:57)
[2022-12-27] MEDS: LORATADINE 10 MG TAB PO SCH (11:01)
[2022-12-27] MEDS: SENNOSIDES 8.6 MG TAB PO SCH ×2 (11:01→20:57)
[2022-12-27] MEDS: HYDROcodone/APAP 7.5-325MG 1 EACH TAB PO SCH ×3 (11:01→20:57)
[2022-12-27] MEDS: SERTRALINE 50 MG TAB PO SCH (11:01)
--- NOTE | 2022-12-27 11:16 | XR ---
EXAMINATION TYPE: XR Hip Limited LT DATE OF EXAM: 12/27/2022 11:11 AM INDICATION: Patient age:Female; 72 years old; Reason for study: Status post hip surgery, assess surgical alignment; COMPARISON: None. TECHNIQUE: The left hip was examined in the frontal projections FINDINGS: Post arthroplasty changes, hardware is intact, alignment is appropriate. No evidence of fra cture. Postoperative changes of the soft tissues with subcutaneous gas. No evidence of any acute osse ous pathology or joint dislocation. IMPRESSION: Hip arthroplasty with hardware intact and in appropriate alignment. No acute fracture.
[2022-12-27] MEDS: METOPROLOL TARTRATE 25 MG TAB PO SCH ×2 (11:22→20:57)
[2022-12-27 12:15] LABS: Glucose,Whole Blood 225 mg/dL (70-110)
[2022-12-27] MEDS: SODIUM CHLORIDE 0.9% 1,000 ML IV SCH (16:30)
[2022-12-27 17:15] LABS: Glucose,Whole Blood 286 mg/dL (70-110)
[2022-12-27 20:49] LABS: Glucose,Whole Blood 382 mg/dL (70-110)
[2022-12-27] MEDS: RIVAROXABAN 20 MG TAB PO SCH (20:57)
[2022-12-27] MEDS: DONEPEZIL 10 MG TAB PO SCH (20:57)
[2022-12-27] MEDS: ATORVASTATIN 10 MG TAB PO SCH (20:57)
[2022-12-27] MEDS: SENNOSIDES-DOCUSATE SODIUM 1 EACH TAB PO SCH (20:58)
--- NOTE | 2022-12-27 21:09 | PN ---
PROGRESS NOTE DATE OF SERVICE: 12/27/2022 SUBJECTIVE: This is a 72-year-old woman who was admitted after left hip fracture, underwent left hip pain and IM nailing. No chest pain, no palpitation. The patient is sedated. OBJECTIVE: VITAL SIGNS: Pulse is 91, blood pressure 130/60, respirations 15. CHEST: Clear to auscultation. CARDIOVASCULAR: S1, S2. ABDOMEN: Soft. LEGS: Status post surgery. LABORATORY DATA: Reviewed. ASSESSMENT: 1. Left hip fracture, status post left hip IM nailing. 2. Dementia. 3. Atrial fibrillation history. 4. Increased WBC. 5. History of mild hyperglycemia .. RECOMMENDATIONS AND DISCUSSION: Recommended to continue current management and continue symptomatic treatment. Change the fluid back to 0.9, otherwise monitor blood sugars closely. Further recommendations to follow. MMODL / IJN: [id number] /
[2022-12-28] MEDS: SODIUM CHLORIDE 0.9% 1,000 ML IV SCH ×2 (06:13→21:49)
--- NOTE | 2022-12-28 07:07 | P.PN ---
Subjective Progress Note Date: 12/28/22 Principal diagnosis: Status post left IM nail This is a 72 year-old female post left hip IT nail. This is post-op day 1. The patient was evaluated at the bedside today. The patient denies nausea, vomiting, abdominal pain, shortness of breath, and chest pain this morning. She states her pain is controlled at this time. The patient has not been up with physical therapy yet. Objective - Vital Signs Vital signs: Vital Signs Temp 98.0 F 12/28/22 01:36 Pulse 83 12/28/22 01:36 Resp 18 12/28/22 01:36 BP 130/77 12/28/22 01:36 Pulse Ox 94 L 12/28/22 01:36 FiO2 Intake & Output 12/27/22 12/28/22 12/28/22 18:59 06:59 18:59 Intake Total 1350 180 Output Total 1020 1500 Balance 330 -1320 Intake: IV 1350 Oral 180 Output: Urine 1000 1500 Estimated Blood Loss 20 Other: Voiding Method Indwelling Catheter Indwelling Catheter - Exam The patient does not appear in acute distress. Alert and answering questions. Dressing is clean dry and intact. Incision appears fine with no erythema or active drainage. Calf is soft and nontender. Good foot and ankle motion without difficulty. Sensation and circulatory status is intact. - Labs CBC & Chem 7: 12/27/22 04:03 12/27/22 04:03 Labs: Abnormal Lab Results - Last 24 Hours (Table) 12/27/22 12/27/22 12/27/22 Range/Units 04:03 04:03 04:03 RBC 3.98 L (4.10-5.20) X 10*6/uL BUN 8.8 L (9.0-27.0) mg/dL Glucose 280 H (70-110) mg/dL POC Glucose (mg/dL) (70-110) mg/dL Hemoglobin A1c 7.2 H (<=6.0) % 12/27/22 12/27/22 12/27/22 Range/Units 07:53 12:14 17:14 RBC (4.10-5.20) X 10*6/uL BUN (9.0-27.0) mg/dL Glucose (70-110) mg/dL POC Glucose (mg/dL) 254 H 225 H 286 H (70-110) mg/dL Hemoglobin A1c (<=6.0) % 12/27/22 Range/Units 20:43 RBC (4.10-5.20) X 10*6/uL BUN (9.0-27.0) mg/dL Glucose (70-110) mg/dL POC Glucose (mg/dL) 382 H (70-110) mg/dL Hemoglobin A1c (<=6.0) % Assessment and Plan (1) Closed left hip fracture Current Visit: Yes Status: Acute Code(s): S72.002A - FRACTURE OF UNSP PART OF NECK OF LEFT FEMUR, INIT SNOMED Code(s): 996581556 (2) Dementia Current Visit: Yes Status: Acute Code(s): F03.90 - UNSP DEMENTIA, UNSP SEVERITY, WITHOUT BEH/PSYCH/MOOD/ANX SNOMED Code(s): 44171626 (3) Atrial fibrillation Current Visit: Yes Status: Acute Code(s): I48.91 - UNSPECIFIED ATRIAL FIBRILLATION SNOMED Code(s): 72704419 (4) Diabetes mellitus Current Visit: Yes Status: Acute Code(s): E11.9 - TYPE 2 DIABETES MELLITUS WITHOUT COMPLICATIONS SNOMED Code(s): 34713663 Plan: 1. Continue pain control. 2. Anticoagulation with Xarelto. 3. Start physical therapy and ambulation. Weightbearing as tolerated. 4. Keep hip dressings in place unless saturated. 5. Anticipate discharge back to [facility] tomorrow or Thursday.
[2022-12-28 07:49] LABS: Basophils % (A) 0 %; Eosinophils # (A) 0.1 k/uL (0-0.7); Eosinophils % (A) 1 %; HCT 32.7 % (34.0-46.0); HGB 11.2 gm/dL (11.4-16.0); Lymphocytes % (A) 12 %; MCH 32.4 pg (25.0-35.0); MCHC 34.2 g/dL (31.0-37.0); MCV 94.6 fL (80.0-100.0); Monocytes # (A) 0.4 k/uL (0-1.0); Monocytes % (A) 4 %; Neutrophils # (A) 7.1 k/uL (1.3-7.7); Neutrophils % (A) 82 %; Platelet Count 174 k/uL (150-450); RBC 3.46 m/uL (3.80-5.40); RDW 12.5 % (11.5-15.5); WBC 8.7 k/uL (3.8-10.6)
[2022-12-28 08:04] LABS: African American GFR (CKD) >90 (>60 ml/min/1.73 sqM); Anion Gap 6 mmol/L; Blood Urea Nitrogen 12 mg/dL (7-17); Calcium 8.2 mg/dL (8.4-10.2); Carbon Dioxide 28 mmol/L (22-30); Chloride 101 mmol/L (98-107); Glucose 257 mg/dL (74-99); Non-African American GFR(CKD) 89 (>60 ml/min/1.73 sqM); Sodium 135 mmol/L (137-145)
[2022-12-28 08:07] LABS: Glucose,Whole Blood 273 mg/dL (70-110)
[2022-12-28] MEDS: SERTRALINE 50 MG TAB PO SCH (10:08)
[2022-12-28] MEDS: FLUTICASONE 50MCG/SPRAY NASAL 16GM EA NOSTRIL SCH (10:08)
[2022-12-28] MEDS: SENNOSIDES 8.6 MG TAB PO SCH ×2 (10:08→21:29)
[2022-12-28] MEDS: LORATADINE 10 MG TAB PO SCH (10:08)
[2022-12-28] MEDS: METOPROLOL TARTRATE 25 MG TAB PO SCH ×2 (10:08→21:29)
[2022-12-28] MEDS: HYDROcodone/APAP 7.5-325MG 1 EACH TAB PO SCH ×3 (10:08→21:29)
[2022-12-28] MEDS ORDERED: DEXTROSE 50% SYRINGE 50 ML IVP PRN ×2 (10:46)
[2022-12-28 12:13] LABS: Glucose,Whole Blood 379 mg/dL (70-110)
[2022-12-28] MEDS: INSULIN ASPART (NovoLOG) 100 UNIT/ML VIAL SQ SCH ×3 (12:31→21:30)
[2022-12-28 17:19] LABS: Glucose,Whole Blood 275 mg/dL (70-110)
--- NOTE | 2022-12-28 20:03 | PN ---
PROGRESS NOTE DATE OF SERVICE: 12/28/2022 SUBJECTIVE: This is a 72-year-old woman, who was admitted with left hip fracture, had a left hip intramedullary nailing. No chest pain. No palpitations. No fever. OBJECTIVE: VITAL SIGNS: Pulse is 79, blood pressure 118/60, respirations 16. CHEST: Clear to auscultation. CARDIOVASCULAR: S1, S2. ABDOMEN: Soft. NERVOUS SYSTEM: Unchanged. LEGS: Status post surgery. LABORATORY DATA: Reviewed. Glucose elevated. ASSESSMENT: 1. Left hip fracture, status post left hip intramedullary nailing. 2. Dementia. 3. Possible diabetes mellitus type 2. 4. Atrial fibrillation. 5. Increased WBC. 6. Hypoglycemia on admission. RECOMMENDATIONS: Recommend to continue current medications, continue symptomatic treatment consistent with carb diet. Accu-Cheks before meals and at bedtime, NovoLog scale. Repeat labs. Closely monitor. Further recommendations to follow. MMODL / IJN: [id number] /
[2022-12-28] MEDS: SENNOSIDES-DOCUSATE SODIUM 1 EACH TAB PO SCH (21:25)
[2022-12-28 21:26] LABS: Glucose,Whole Blood 287 mg/dL (70-110)
[2022-12-28] MEDS: RIVAROXABAN 20 MG TAB PO SCH (21:29)
[2022-12-28] MEDS: ATORVASTATIN 10 MG TAB PO SCH (21:29)
[2022-12-28] MEDS: DONEPEZIL 10 MG TAB PO SCH (21:29)
[2022-12-29] MEDS: SODIUM CHLORIDE 0.9% 1,000 ML IV SCH ×2 (06:11→20:50)
[2022-12-29 07:10] LABS: Glucose,Whole Blood 217 mg/dL (70-110)
[2022-12-29] MEDS: LORATADINE 10 MG TAB PO SCH (08:23)
[2022-12-29] MEDS: SERTRALINE 50 MG TAB PO SCH (08:23)
[2022-12-29] MEDS: SENNOSIDES 8.6 MG TAB PO SCH ×2 (08:23→20:47)
[2022-12-29] MEDS: HYDROcodone/APAP 7.5-325MG 1 EACH TAB PO SCH ×3 (08:23→20:47)
[2022-12-29] MEDS: INSULIN ASPART (NovoLOG) 100 UNIT/ML VIAL SQ SCH ×4 (08:24→20:47)
[2022-12-29] MEDS: METOPROLOL TARTRATE 25 MG TAB PO SCH ×2 (08:24→20:43)
[2022-12-29] MEDS: FLUTICASONE 50MCG/SPRAY NASAL 16GM EA NOSTRIL SCH (08:25)
--- NOTE | 2022-12-29 08:49 | P.PN ---
Subjective Progress Note Date: 12/29/22 Principal diagnosis: This is a 72 year-old female post left hip IT nail. This is post-op day 2. The patient was evaluated at the bedside today. The patient denies nausea, vomitin g, abdominal pain, shortness of breath, and chest pain this morning. She states her pain is controlled at this time. This is a 72-year-old female in no acute distress. She is alert and oriented at this time. Exam of the left hip reveals that her dressing is clean, dry and intact. She has full foot ankle motion without difficulty or pain. Neurovascular status to the lower extremities grossly intact. Objective - Vital Signs Vital signs: Vital Signs Temp 99.1 F 12/29/22 07:40 Pulse 74 12/29/22 07:40 Resp 16 12/29/22 07:40 BP 138/77 12/29/22 07:40 Pulse Ox 94 L 12/29/22 08:26 FiO2 Intake & Output 12/28/22 12/29/22 12/29/22 18:59 06:59 18:59 Intake Total 600 1400 Output Total 1200 1625 Balance -600 -225 Intake: Intake, IV Titration 600 900 Amount Sodium Chloride 0.9% 1, 600 900 000 ml @ 75 mls/hr IV . [id number] [facility] Rx#:[id number] Oral 500 Output: Urine 1200 1625 Other: Voiding Method Indwelling Catheter Indwelling Catheter Indwelling Catheter - Exam The clinical findings are discussed with the patient. She may be discharged to [facility] from an orthopedic standpoint. She'll work with physical therapy today. - Labs CBC & Chem 7: 12/28/22 07:01 12/28/22 07:01 Labs: Abnormal Lab Results - Last 24 Hours (Table) 12/28/22 12/28/22 12/28/22 Range/Units 12:12 17:17 21:24 POC Glucose (mg/dL) 379 H 275 H 287 H (70-110) mg/dL 12/29/22 Range/Units 07:07 POC Glucose (mg/dL) 217 H (70-110) mg/dL
[2022-12-29 11:57] LABS: Basophils # (A) 0.04 X 10*3/uL (0.00-0.10); Basophils % (A) 0.5 %; Eosinophils # (A) 0.13 X 10*3/uL (0.04-0.35); Eosinophils % (A) 1.7 %; HCT 30.1 % (37.2-46.3); HGB 10.3 d/dL (12.0-15.0); Lymphocytes # (A) 1.38 X 10*3/uL (0.90-5.00); Lymphocytes % (A) 17.8 %; MCH 32.2 pg (27.0-32.0); MCHC 34.2 d/dL (32.0-37.0); MCV 94.1 FL (80.0-97.0); Mean Platelet Volume 11.3 FL (9.5-12.2); Monocytes # (A) 0.56 X 10*3/uL (0.20-1.00); Monocytes % (A) 7.2 %; NRBC Per 100 WBC 0 X 10*3/uL (0.00-0.01); Neutrophils # (A) 5.63 X 10*3/uL (1.80-7.70); Neutrophils % (A) 72.5 %; Platelet Count 178 X 10*3/uL (140-440); RDW 12.3 % (11.5-14.5); WBC 7.76 X 10*3/uL (4.50-10.00)
[2022-12-29 12:03] LABS: Glucose,Whole Blood 346 mg/dL (70-110)
[2022-12-29 12:35] LABS: BUN/Creat Ratio 14.57 Ratio (12.00-20.00); Blood Urea Nitrogen 10.2 mg/dL (9.0-27.0); Calcium 8.4 mg/dL (8.7-10.3); Carbon Dioxide 27.3 mmol/L (21.6-31.8); Chloride 99 mmol/L (96-109); Glucose 204 mg/dL (70-110); Potassium 3.8 mmol/L (3.5-5.5); Sodium 137 mmol/L (135-145)
[2022-12-29 17:07] LABS: Glucose,Whole Blood 284 mg/dL (70-110)
[2022-12-29 20:21] LABS: Glucose,Whole Blood 349 mg/dL (70-110)
[2022-12-29] MEDS: SENNOSIDES-DOCUSATE SODIUM 1 EACH TAB PO SCH (20:42)
[2022-12-29] MEDS: ATORVASTATIN 10 MG TAB PO SCH (20:47)
[2022-12-29] MEDS: RIVAROXABAN 20 MG TAB PO SCH (20:47)
[2022-12-29] MEDS: DONEPEZIL 10 MG TAB PO SCH (20:47)
--- NOTE | 2022-12-30 05:30 | P.PN ---
Subjective Progress Note Date: 12/29/22 This is a 72-year-old female who was recently admitted under orthopedic services status post fall had left hip fracture status post intramedullary nailing and is being closely monitored. Patient seen and evaluated by physical therapy will be returning to [facility] when discharged. Social work following patient requiring insurance authorization which has been submitted currently pending. Patient is sitting up in the chair has been working with physical therapy reports her pain is controlled. Patient is afebrile with no reports of chest pain or shortness of breath. Patient reports to tolerating diet with no reported nausea or vomiting. Review of systems: Constitutional: No reports of fatigue, fever, or chills Cardiovascular: No reports of chest pain or palpitations Respiratory: No reports of shortness of breath or cough GI: No reports of nausea, no reports of vomiting, no diarrhea : No reports of dysuria or retention Neurovascular: reports of generalized weakness All medications have been reviewed PHYSICAL EXAMINATION: GENERAL: The patient is alert and oriented x1-2 baseline, Well developed, well nourished. HEENT: Pupils are round and equally reacting to light. EOMI. no scleral icterus. No conjunctival pallor. Normocephalic, atraumatic. No pharyngeal erythema. No thyromegaly. CARDIOVASCULAR: S1 and S2 muffled PULMONARY: diminished breath sounds bilaterally with no wheezing or rhonchi noted. ABDOMEN: soft. Nontender on exam. non-distended, normoactive bowel sounds. No palpable organomegaly. MUSCULOSKELETAL: No joint swelling or deformity. EXTREMITIES: No cyanosis, clubbing, or pedal edema. Left hip surgical site dry and intact NEUROLOGICAL: Gross neurological examination did not reveal any focal deficits. Diffuse weakness SKIN: No rashes. Assessment: Left hip fracture, status post left hip intramedullary nailing Dementia history Possible diabetes mellitus, type II Atrial fibrillation history Leukocytosis Hypoglycemia, on admission improved GI prophylaxis DVT prophylaxis Full code Plan: Recommend to continue with current medications and management per orthopedic services. Patient underwent left hip intramedullary nailing and doing well postoperatively Patient will be returning to [facility] and requires insurance authorization. Social work is following and has submitted for insurance authorization. Encouraged oral intake and increased activity as tolerated with orthopedic restrictions Physical therapy following Recommend continue monitoring Accu-Cheks before meals and at bedtime and continue sliding scale Patient is medically stable for discharge to [facility]. We will continue to follow with orthopedics during hospitalization. Thank you kindly for this consultation The impression and plan of care has been dictated by Sara Ruiz, nurse practitioner as directed. Dr. Christie MD I have performed a history and examination and MDM of this patient, discussed the same with the dictator, and agree with the dictator's assessment and plan as written ,documented as a scribe. Based on total visit time, I have performed more than 50% of the visit. Any additional findings or plans will be noted. Objective - Vital Signs Vital signs: Vital Signs Temp 99.1 F 12/29/22 07:40 Pulse 74 12/29/22 07:40 Resp 16 12/29/22 07:40 BP 138/77 12/29/22 07:40 Pulse Ox 94 L 12/29/22 08:26 FiO2 Intake & Output 12/28/22 12/29/22 12/29/22 18:59 06:59 18:59 Intake Total 600 1400 Output Total 1200 1625 Balance -600 -225 Intake: Intake, IV Titration 600 900 Amount Sodium Chloride 0.9% 1, 600 900 000 ml @ 75 mls/hr IV . [id number] [facility] Rx#:[id number] Oral 500 Output: Urine 1200 1625 Other: Voiding Method Indwelling Catheter Indwelling Catheter Indwelling Catheter - Labs CBC & Chem 7: 12/29/22 06:40 12/29/22 06:40 Labs: Abnormal Lab Results - Last 24 Hours (Table) 12/28/22 12/28/22 12/28/22 Range/Units 12:12 17:17 21:24 POC Glucose (mg/dL) 379 H 275 H 287 H (70-110) mg/dL 12/29/22 Range/Units 07:07 POC Glucose (mg/dL) 217 H (70-110) mg/dL
[2022-12-30 07:34] LABS: Glucose,Whole Blood 217 mg/dL (70-110)
[2022-12-30 07:41] VITALS: RESP 17
[2022-12-30] MEDS: LORATADINE 10 MG TAB PO SCH (08:14)
[2022-12-30] MEDS: METOPROLOL TARTRATE 25 MG TAB PO SCH (08:14)
[2022-12-30] MEDS: HYDROcodone/APAP 7.5-325MG 1 EACH TAB PO SCH ×2 (08:14→13:04)
[2022-12-30] MEDS: SERTRALINE 50 MG TAB PO SCH (08:14)
[2022-12-30] MEDS: SENNOSIDES 8.6 MG TAB PO SCH (08:14)
[2022-12-30] MEDS: INSULIN ASPART (NovoLOG) 100 UNIT/ML VIAL SQ SCH ×2 (08:15→13:04)
[2022-12-30] MEDS: FLUTICASONE 50MCG/SPRAY NASAL 16GM EA NOSTRIL SCH (08:15)
[2022-12-30] MEDS: SODIUM CHLORIDE 0.9% 1,000 ML IV SCH (08:16)
[2022-12-30] MEDS ORDERED: TAMSULOSIN 0.4 MG CAP.ER.24H PO SCH (10:30)
--- NOTE | 2022-12-30 10:36 | P.DS ---
Providers Date of admission: 12/25/22 19:38 Expected date of discharge: 12/30/22 Attending physician: La Honeycutt DO Consults: 12/25/22 19:38 Consult Physician Routine Consulting Provider: Elise Hopper Consult Reason/Comments: Medical clearance for surgery Do you want consulting provider notified?: Yes Primary care physician: [facility] Course: This is a 72-year-old female who is admitted to [facility] on 12/25/22 after falling and sustaining injury to the left hip. On exam and x-ray in the emergency department she is found to have a basicervical left femoral neck fracture. She is admitted to our service for surgical intervention and care. Patient is taken to surgery for IM nail left hip on 12/27/22. The procedure was performed without complication or sequelae. The patient is doing fairly well postoperatively. Vital signs and labs are stable on postoperative day #3. Patient was examined bedside this morning. She states pain is well-controlled in the left hip. She has been ambulating with a walker with assistance. Patient states she feels well and has no complaints. Per nursing walton is being placed due to urinary retention. Patient denies chest pain, shortness of breath. On examination, patient is sitting up in bed in no apparent distress. She is alert and answers questions appropriately. On inspection of the left hip, there are three clean, dry, intact surgical dressings in place. No bleeding or drainage through the dressings. Motor and sensory function intact left lower extremity. Left lower extremity is warm and well perfused. Calf non-tender. Patient is discharged to rehab today in good condition, pending medical clearance. Please see med rec for accurate list of discharge medications. She should follow-up in the office at [facility] in two weeks. Patient Condition at Discharge: Stable Plan - Discharge Summary Discharge Rx Participant: No New Discharge Prescriptions: Continue Magnesium Hydroxide [Milk of Magnesia] 400 mg PO DAILY PRN PRN Reason: Constipation guaiFENesin SYRUP 100MG/5ML [Robitussin] 200 mg PO Q4H PRN PRN Reason: Cough Rivaroxaban [Xarelto] 20 mg PO HS Metoprolol Tartrate [Lopressor] 25 mg PO BID Insulin Lispro [humaLOG Kwikpen] 6 unit SQ DAILY@1600 Fexofenadine HCl 60 mg PO DAILY Dulaglutide [Trulicity] 1.5 mg SQ FR Donepezil [Aricept] 10 mg PO HS Atorvastatin [Lipitor] 10 mg PO HS Acetaminophen [Tylenol] 650 mg PO Q6H PRN PRN Reason: Pain Sennosides/Docusate Sodium [Senna Plus 8.6-50 mg Tablet] 1 tab PO BID Insulin Glargine,Hum.rec.anlog [Toujeo Solostar] 30 units SQ BID Sertraline [Zoloft] 50 mg PO DAILY Fluticasone Nasal [place]folden [Flonase Nasal Newfolden] 1 spray EA NOSTRIL DAILY Discontinued HYDROcodone/APAP 7.5-325MG [[place] 7.5-325] 1 tab PO TID@0900,1300,2100 Discharge Medication List Acetaminophen [Tylenol] 650 mg PO Q6H PRN 12/25/22 [History] Atorvastatin [Lipitor] 10 mg PO HS 12/25/22 [History] Donepezil [Aricept] 10 mg PO HS 12/25/22 [History] Dulaglutide [Trulicity] 1.5 mg SQ FR 12/25/22 [History] Fexofenadine HCl 60 mg PO DAILY 12/25/22 [History] Fluticasone Nasal [place] [Flonase Nasal [place]en] 1 spray EA NOSTRIL DAILY 12/25/22 [History] Insulin Glargine,Hum.rec.anlog [Toujeo Solostar] 30 units SQ BID 12/25/22 [History] Insulin Lispro [humaLOG Kwikpen] 6 unit SQ DAILY@1600 12/25/22 [History] Magnesium Hydroxide [Milk of Magnesia] 400 mg PO DAILY PRN 12/25/22 [History] Metoprolol Tartrate [Lopressor] 25 mg PO BID 12/25/22 [History] Rivaroxaban [Xarelto] 20 mg PO HS 12/25/22 [History] Sennosides/Docusate Sodium [Senna Plus 8.6-50 mg Tablet] 1 tab PO BID 12/25/22 [History] Sertraline [Zoloft] 50 mg PO DAILY 12/25/22 [History] guaiFENesin SYRUP 100MG/5ML [Robitussin] 200 mg PO Q4H PRN 12/25/22 [History] Follow up Appointment(s)/Referral(s): La Honeycutt DO [Doctor of Osteopathic Medicine] - 4 Weeks Jack Moore MD [Primary Care Provider] - 1-2 days Activity/Diet/Wound Care/Special Instructions: Change hip dressings as needed for drainage. May shower uncovered 2 days after surgery. No soaking of incisions. Weightbearing as tolerated with a walker. Follow up with [facility], Dr. Honeycutt in 4 weeks. Discharge Disposition: TRANSFER TO SNF/ECF
[2022-12-30 11:13] LABS: Basophils # (A) 0.03 X 10*3/uL (0.00-0.10); Basophils % (A) 0.4 %; Eosinophils # (A) 0.17 X 10*3/uL (0.04-0.35); Eosinophils % (A) 2.5 %; HCT 29.4 % (37.2-46.3); Lymphocytes # (A) 1.47 X 10*3/uL (0.90-5.00); Lymphocytes % (A) 21.8 %; MCH 32.1 pg (27.0-32.0); MCV 94.2 FL (80.0-97.0); Mean Platelet Volume 11.1 FL (9.5-12.2); Monocytes # (A) 0.58 X 10*3/uL (0.20-1.00); Monocytes % (A) 8.6 %; NRBC Per 100 WBC 0 X 10*3/uL (0.00-0.01); Neutrophils # (A) 4.46 X 10*3/uL (1.80-7.70); Neutrophils % (A) 66.4 %; Platelet Count 186 X 10*3/uL (140-440); RBC 3.12 X 10*6/uL (4.10-5.20); RDW 12.5 % (11.5-14.5); WBC 6.73 X 10*3/uL (4.50-10.00)
[2022-12-30 12:04] LABS: Glucose,Whole Blood 237 mg/dL (70-110)
[2022-12-30 13:06] VITALS: BP 128/57; PULSE 64; TEMP 97.8
--- NOTE | 2022-12-31 10:24 | P.PN ---
Subjective Progress Note Date: 12/31/22 This is a 72-year-old female who was recently admitted under orthopedic services status post fall had left hip fracture status post intramedullary nailing and is being closely monitored. Patient seen and evaluated by physical therapy will be returning to [facility] when discharged. Social work following patient requiring insurance authorization which has been submitted currently pending. Patient is sitting up in the chair has been working with physical therapy reports her pain is controlled. Patient is afebrile with no reports of chest pain or shortness of breath. Patient reports to tolerating diet with no reported nausea or vomiting. 12/30/2022 Patient is seen and evaluated in follow-up today per nursing staff retaining some urine requiring straight catheterization. Would recommend indwelling Cade catheter until patient is more mobile. Patient will be started on Flomax with trial void in the outpatient setting at [facility]. If this fails would recommend urology consult outpatient. Most likely medication effect. Patient denies any burning or pain or retention noted. Patient is with a history of dementia. Vital signs are stable, patient is afebrile with no reported chest pain or shortness of breath noted. Patient with no reported nausea or vomiting and tolerating diet. Orthopedics planning on discharge today as insurance authorization was obtained. Review of systems: Constitutional: No reports of fatigue, fever, or chills Cardiovascular: No reports of chest pain or palpitations Respiratory: No reports of shortness of breath or cough GI: No reports of nausea, no reports of vomiting, no diarrhea : No reports of dysuria or retention Neurovascular: reports of generalized weakness All medications have been reviewed PHYSICAL EXAMINATION: GENERAL: The patient is alert and oriented x1-2 baseline, Well developed, well nourished. HEENT: Pupils are round and equally reacting to light. EOMI. no scleral icterus. No conjunctival pallor. Normocephalic, atraumatic. No pharyngeal erythema. No thyromegaly. CARDIOVASCULAR: S1 and S2 muffled PULMONARY: diminished breath sounds bilaterally with no wheezing or rhonchi noted. ABDOMEN: soft. Nontender on exam. non-distended, normoactive bowel sounds. No palpable organomegaly. MUSCULOSKELETAL: No joint swelling or deformity. EXTREMITIES: No cyanosis, clubbing, or pedal edema. Left hip surgical site dry and intact NEUROLOGICAL: Gross neurological examination did not reveal any focal deficits. Diffuse weakness SKIN: No rashes. Assessment: Left hip fracture, status post left hip intramedullary nailing Urinary retention requiring indwelling Cade catheter, possibly secondary to medication effect Dementia history Possible diabetes mellitus, type II Atrial fibrillation history Leukocytosis Hypoglycemia, on admission improved GI prophylaxis DVT prophylaxis Full code Plan: Recommend to continue with current medications and management per orthopedic services. Patient underwent left hip intramedullary nailing and doing well postoperatively Patient will be returning to [facility] today and insurance authorization has been obtained. Patient with some urinary retention overnight recommend indwelling Cade catheter and will initiate Flomax. Trial void in the outpatient setting once patient is more mobile at [facility] Encouraged oral intake and increased activity as tolerated with orthopedic restrictions Physical therapy following Recommend continue monitoring Accu-Cheks before meals and at bedtime and continue sliding scale Patient is medically stable for discharge to [facility]. We will continue to follow with orthopedics during hospitalization. Thank you kindly for this consultation The impression and plan of care has been dictated by Sara Ruiz, nurse practitioner as directed. Dr. Christie MD I have performed a history and examination and MDM of this patient, discussed the same with the dictator, and agree with the dictator's assessment and plan as written ,documented as a scribe. Based on total visit time, I have performed more than 50% of the visit. Any additional findings or plans will be noted. Objective - Vital Signs Vital signs: Vital Signs Temp 97.8 F 12/30/22 12:01 Pulse 64 12/30/22 12:01 Resp 17 12/30/22 12:01 BP 128/57 12/30/22 12:01 Pulse Ox 97 12/30/22 12:01 FiO2 Intake & Output 12/30/22 12/31/22 12/31/22 18:59 06:59 18:59 Other: Voiding Method Indwelling Catheter - Labs CBC & Chem 7: 12/30/22 05:38 12/29/22 06:40 Labs: Abnormal Lab Results - Last 24 Hours (Table) 12/30/22 12/30/22 Range/Units 05:38 12:02 RBC 3.12 L (4.10-5.20) X 10*6/uL Hgb 10.0 L (12.0-15.0) d/dL Hct 29.4 L (37.2-46.3) % MCH 32.1 H (27.0-32.0) pg POC Glucose (mg/dL) 237 H (70-110) mg/dL
== END 2022-12-30 13:34 | DRG 481 ==
LOC: EEVIPCON 16:39 → SUPCPDRO 16:39 → EC 16:39 → 5NMEDONC 19:38
PROVIDERS: ADMIT Orthopaedic Surgery Hand Surgery; ATTEND Orthopaedic Surgery Hand Surgery
PROC: 0QS736Z Reposition Left Upper Femur with Intramedullary Internal Fixation Device, Percutaneous Approach (ICD-10-PCS; principal; 2022-12-27 08:00)
DX: S72.002A Fracture of unspecified part of neck of left femur, initial encounter for closed fracture (principal); I48.20 Chronic atrial fibrillation, unspecified; W18.39XA Other fall on same level, initial encounter; Y93.89 Activity, other specified; Y92.129 Unspecified place in nursing home as the place of occurrence of the external cause; E11.649 Type 2 diabetes mellitus with hypoglycemia without coma; E78.5 Hyperlipidemia, unspecified; F03.90 Unspecified dementia, unspecified severity, without behavioral disturbance, psychotic disturbance, mood disturbance, and anxiety; I10 Essential (primary) hypertension; Z79.01 Long term (current) use of anticoagulants; Z79.4 Long term (current) use of insulin; Z79.899 Other long term (current) drug therapy
CPT/HCPCS: 36415; 51701; 71045; 73501; 73502; 80048; 80053; 81003; 83036; 85025; 85610; 85730; 93005; 93306; 94760; 99285